=== PATIENT | female | born 1980 | race Caucasian/White ===

== ENCOUNTER 2024-03-06 17:18 | Emergency (ER) | payer MEDICARE, SELFPAY ==
[2024-03-06 17:22] VITALS: BP 134/108
--- NOTE | 2024-03-06 18:34 | ED.GENMED ---
History of Present Illness
General
Chief Complaint: Crisis Evaluation
Source: patient
Time Seen by Provider: 03/06/24 18:10
History of Present Illness
History of Present Illness:
43-year-old female with a history of asked Buerger's syndrome who lives in [facility] who presents feeling suicidal. She states she walked down to the train and thought about how that would go. She also had a knife in the bathroom thinking
about cutting her wrist or her neck. Patient states she is just under a lot of stress and sometimes she just needs to chill out but her roommate will not allow that make it worse. She feels like she needs inpatient care. She otherwise denies any
medical complaints. She specifically denies chest pain or shortness of breath. No fevers. No headache. No injury. Patient states that she is on Zyprexa but feels like she may need new medications.
Past History
Past History
ED Past Medical History: Psychiatric (SCHIZOAFFECTIVE disorder) and Other (Autism)
ED Past Surgical History: None, Orthopedic and Other (Umbilical hernia)
Social History
Tobacco: Other
Alcohol: Other
Drug: None and Other
Personal: Single
Living: with family
Employment: Disabled
Family History
Family History: Other (Noncontributory)
Phy Exam
Physical Exam
Physical Exam:
CONSTITUTIONAL Vital signs reviewed, Patient alert and oriented to person, place and time. Well-appearing
HEAD atraumatic, normocephalic.
EYES eyelids normal to inspection, Extraocular muscles intact, Conjunctiva normal, Sclera normal.
NECK normal range of motion, Trachea midline, no jugular venous distention.
RESP no respiratory distress
BACK No obvious deformities
UPPER EXTREMITY Gross Range of motion normal, gross motor strength normal
LOWER EXTREMITY Gross range of motion normal, Gross motor strength normal
NEURO Speech normal, No focal motor deficits include, [place] coma scale 15, Memory normal, Cranial Nerves intact to screening exam.
SKIN Skin warm, dry, and normal in color.
PSYCHIATRIC Patient oriented to person place and time, Normal affect.
Course
Orders/Labs/Results
Orders:
Orders
03/06/24 17:29
1:1 Observation - Suicide/ Violent Behavior As Directed
03/06/24 18:34
Electrocardiogram (*1) Urgent
Reason for Study: Palpitations
03/06/24 18:35
Add On- LAB Urgent
Tests Added?: HCG, urine
Crisis Consult Routine
Reason for Consult: suicidality
EKG- Treatment ONCE
03/06/24 18:45
HCG, Urine Qualitative Screen Urgent
Comment: ADD ON
Urinalysis Urgent
Urine Drug Abuse Screen Urgent
Vital Signs
Initial and Last Documented VS:
Initial Vital Signs
Temp Pulse Resp BP Pulse Ox
98.2 F 90 16 134/108 100
03/06/24 17:22 03/06/24 17:22 03/06/24 17:22 03/06/24 17:22 03/06/24 17:22
Last Documented Vital Signs
Temp Pulse Resp BP Pulse Ox
98.2 F 90 16 134/108 100
03/06/24 17:22 03/06/24 17:22 03/06/24 17:22 03/06/24 17:22 03/06/24 17:22
MDM/Problems Addressed
MDM/Problems Addressed:
Suicidality, Asperger syndrome
*Pulse Oximetry
Patient hypoxic: no
*Critical Care Note
Total Time (30-74mins, 75-104mins- exclusive of procedures): Not Applicable
Data Reviewed
Source: patient
Further Testing Considered But Not Given:
Consider labs the patient offers no medical complaints and stable
Patient Management
Escalation/DeEscalation of care consider admission/obs:
Patient is amenable to inpatient care. She is awake and alert with no medical complaints. Continue to monitor. Crisis aware.
ED Attending Note
-
Portions of this chart may have been created with voice recognition software.� Occasional wrong word or��sound alike� substitutions may have occurred due to the inherent limitations of voice recognition software.
Discharge Plan
Departure
Patient Disposition: Psych Facility
Date of Disposition: 03/06/24
Time of Disposition: 18:36
Discharge Problem:
Suicidal ideation
Prescriptions:
No Action
acetaminophen 325 MG tablet
650 mg PO Q4HPRN PRN (Reason: mild pain) 0RF
fluoxetine [Prozac] 40 MG capsule
40 mg PO DAILY
Latuda 80 MG tablet
80 mg PO DAILY
trazodone 50 mg Tablet
50 mg PO HS
Referrals:
UNKNOWN,NO INTERVIEW [Family Provider] -
Interventions
Interventions:
*Risk Screen - Suicide Last Done: 03/06/24 17:22
*Neglect/Abuse Screening Last Done: 03/06/24 17:22
Discharge Date and Time
Print Language: ITALIAN
[2024-03-06 20:35] LABS: % Basophils 0.2 % (0-2); % Immature Granulocytes 0.4 % (0-0.5); % Lymphocytes 28.2 % (20.5-51.1); % Monocytes 6.3 % (1.7-9.3); % Neutrophils 64.9 % (42.2-75.2); Absolute Lymphocytes 2.9 10^3/uL (1.2-3.4); Absolute Monocytes 0.6 10^3/uL (0.1-0.6); Absolute Neutrophils 6.6 10^3/uL (1.4-6.5); Hemoglobin 14.5 g/dL (12.0-16.0); Mean Corp Hgb Conc. 33.7 g/dL (33.0-37.0); Mean Corpuscular Hgb 29.2 pg (27.0-31.0); Mean Corpuscular Volume 86.5 fL (81.0-99.0); Mean Platelet Volume 9.6 fL (7.4-10.4); Nucleated Red Blood Cells % 0 %; Platelet Count 310 10^3/uL (130-400); Red Blood Cell Count 4.97 10^6/uL (4.20-5.40); Red Cell Dist. Width 11.9 % (11.5-14.5); White Blood Cell Count 10.1 10^3/uL (4.8-10.8)
[2024-03-06 20:52] LABS: Blood Urea Nitrogen 11 mg/dl (7-17); Calcium 10.1 mg/dl (8.4-10.2); Carbon Dioxide 26 mmol/L (22-30); Chloride 101 mmol/L (98-107); Glucose 107 mg/dl (70-99); Potassium 4.1 mmol/L (3.5-5.1); Sodium 137 mmol/L (135-145); eGFR > 60.00
[2024-03-06 20:53] LABS: Alcohol None Detected
[2024-03-06 21:11] LABS: HCG, Urine Qualitative Screen Negative
[2024-03-06 21:14] LABS: Amphetamines Negative (Negative); Barbiturates Negative (Negative); Benzodiazepines Negative (Negative); Buprenorphine Negative (Negative); Cocaine Negative (Negative); Marijuana Negative (Negative); Methadone Negative (Negative); Methamphetamines Negative (Negative); Opiates Negative (Negative); Phencyclidine Negative (Negative); Tricyclic Antidepressants Negative (Negative)
[2024-03-06 21:16] LABS: Urine Albumin Negative (Neg - Trace); Urine Bilirubin Negative (Negative); Urine Character Clear (Clear); Urine Color Yellow; Urine Glucose Negative (Negative); Urine Ketone Negative (Negative); Urine Leukocyte Negative (Negative); Urine Nitrite Negative (Negative); Urine Occult Blood Negative (Negative); Urine Urobilinogen Negative (Neg - 1+)
[2024-03-06] MEDS: DESYREL 150 MG PO (21:42)
[2024-03-06] MEDS: ZYPREXA 10 MG PO (21:43)
[2024-03-06] MEDS: ZYPREXA 7.5 MG PO (21:46)
== END 2024-03-06 22:11 ==
LOC: EMR 17:18
PROVIDERS: EMERGENCY PHYSICIAN Emergency Medicine
DX: R45.851 Suicidal ideations (principal); F84.5 Asperger's syndrome; F25.9 Schizoaffective disorder, unspecified; Z88.8 Allergy status to other drugs, medicaments and biological substances
CPT/HCPCS: 99285; 80048; 80306; 81003; 81025; 82077; 85025; 93005